=== PATIENT | female | born 1960 | race Caucasian/White ===

== ENCOUNTER → 2023-06-07 | Emergency (ER) | payer BC, MEDICARE ==
[~2023-06-07] VITALS: Ht 157.5 cm; Wt 45.0 kg
[2023-06-07 06:02] VITALS: TEMP 97.9
[2023-06-07 06:51] VITALS: BP 139/79; PULSE 84; O2SAT 98
[2023-06-07 07:00] VITALS: RESP 20
[2023-06-07] MEDS: thiamine 100mg tablet PO SCH (07:30)
[2023-06-07] MEDS: normal saline 1000ML IV soln IVB ONE (07:31)
[2023-06-07] MEDS: magnesium 2GM in 50ml NS 50 ML IV ONE (07:31)
[2023-06-07] MEDS: multivitamins, therapeutics tablet PO SCH (07:31)
== END | disposition left against medical advice (07) ==
LOC: ER 05:59
DX: F10.929 Alcohol use, unspecified with intoxication, unspecified (principal); I10 Essential (primary) hypertension; E03.9 Hypothyroidism, unspecified; Z88.2 Allergy status to sulfonamides; Y90.9 Presence of alcohol in blood, level not specified
CPT/HCPCS: 99284; J7030; J3475

== ENCOUNTER 2025-01-05 11:04 | Inpatient (IN) | payer OTHER, MEDICARE, BC ==
[~2025-01-05] VITALS: Ht 154.9 cm; Wt 49.9 kg
--- NOTE | 2025-01-05 11:10 | ELECTROCARDIOGRAPH REPORT ---
[facility] Test Date: 2025-01-05 Test Time: 11:07:09 Pat Name: MURALI HILARIO Department: EMERGENCY ROOM Room: Gender: F Histology Tech: WON : 1960 Requested By: ARLEEN ESPINOZA Order Number: [id number] Reading MD: Measurements Intervals [place] Rate: 73 P: 55 AK: 123 QRS: 70 QRSD: 84 T: 69 QT: 404 QTc: 446 Interpretive Statements Sinus rhythm Consider left ventricular hypertrophy Baseline wander in lead(s) V2 Please click the below link to view image of tracing.
--- NOTE | 2025-01-05 11:18 | Physician Documentation ---
History of Present Illness General Chief Complaint: Chest Pain Stated Complaint: CHEST PAIN Time Seen by MD: 11:17 Primary Medical Doctor: MALATHI Mccormack History of Present Illness Initial Comments The patient is a 64-year-old female with a history of alcoholism in the past and a GI bleed in the past who presents with intermittent chest pain. She states she has had chest pain over the last several weeks. The patient has seen her general counselor and they were planning to do an outpatient stress test. The patient has no history of coronary artery disease. Patient states that her pain has been worse yesterday morning and then this morning when she woke up it was proximally four to 5/10 in his increased to 6/10 she states it is epigastric and substernal sharp and she has slight shortness of breath. The patient was given a nitroglycerin prior to my examination and she had no significant relief. Patient denies any nausea or vomiting she does complain of some slight shortness of breath. Her symptoms are mild to moderate and persistent. Cardiologists is Dr. Quezada states the pain does radiate to her back Medication Reconciliation Allergies: Coded Allergies: Sulfa (Sulfonamide Antibiotics) (Verified Allergy, Mild, RASH, 01/05/25) Scheduled Atorvastatin Calcium (Atorvastatin Calcium), 1 TAB PO DAILY Bupropion Hcl SR* (Wellbutrin SR*), 1 TAB PO DAILY, (Reported) Cholecalciferol (Vitamin D3) (Vitamin D3), 1 CAP PO DAILY, (Reported) Estradiol (Linda), 0.05 MG TOP TF, (Reported) Furosemide (Lasix), 20 MG PO DAILY Gabapentin (Gabapentin), 3 CAP PO HS, (Reported) Levothyroxine Sodium (Synthroid), 1 TAB PO DAILY, (Reported) Liothyronine Sodium (Liothyronine Sodium), 1 TAB PO DAILY, (Reported) Losartan* (Cozaar*), 0.5 TAB PO DAILY, (Reported) Nebivolol Hcl (Bystolic tablet), 1 TAB PO HS, (Reported) Pantoprazole Sodium (Pantoprazole Sodium), 40 MG PO DAILY Trazodone HCl (Trazodone HCl), 1 TAB PO HS, (Reported) Scheduled PRN Tramadol HCl (Tramadol HCl), 1 TAB PO Q6H PRN PRN for pain Past Medical History Past Medical History: Hypertension, Peptic Ulcer Disease, Anemia, Hypothyroidism Alcohol Use: Alcoholic Drug Use: none Lives with: Spouse Lives In: Home Physical Exam Physical Exam Vital Signs: Temperature: 97.3, Source: Temporal, Heart Rate: 67, Respiratory Rate: 16, BP: 194/96, Pulse Oximetry: 97, Weight: 49.900 Oxygen Flow Rate: 0 Progress Results/Orders Results/Orders Orders - OHARLEEN MICHELLE MD Chest,Single View (01/05/25 11:06) Monitor (01/05/25 11:06) Saline Lock (01/05/25 11:06) Oxygen (01/05/25 11:06) Page Hospitalist (01/05/25 13:45) Fill Out Med Reconciliation (01/05/25 13:45) Completed Orders - ARLEEN BUCK MD Chest,Single View (01/05/25 11:06) Cbc/Diff (01/05/25 11:06) BMP (01/05/25 11:06) PBNP (01/05/25 11:06) Electrocardiogram (01/05/25 11:06) Hs Troponin I W Calculations (01/05/25 11:06) Hs Troponin I W Calculations (01/05/25 13:06) Hs Troponin I W Calculations (01/05/25 14:06) Nitroglycerin Sublingual Tab (Nitrostat (01/05/25 12:20) Lidocaine 2% Viscous (Xylocaine 2% Visco (01/05/25 12:55) Mag & Alum Hydrox/Simeth Susp (Maalox Or (01/05/25 12:55) D-Dimer (01/05/25 12:58) Morphine 4mg/Ml Inj. (Morphine Inj.) (01/05/25 13:35) Ondansetron Inj. (Zofran 4mg/2ml Vial) (01/05/25 13:35) C-Reactive Protein (01/05/25 11:27) Hgb A1c (01/05/25 11:27) Lipase (01/05/25 11:27) Lipid Panel (01/05/25 11:27) Liver Panel (01/05/25 11:27) MG (01/05/25 11:27) PHOS (01/05/25 11:27) Vital Signs 01/05/25 01/05/25 01/05/25 01/05/25 11:08 12:02 12:07 12:07 Temp 97.3 Pulse 67 71 Resp 16 12 15 B/P (MAP) 194/96 184/79 (114) Pulse Ox 97 98 98 O2 Delivery Room Air* O2 Flow Rate 0 0 FiO2 N/A 01/05/25 01/05/25 01/05/25 12:33 13:14 13:44 Pulse 76 71 Resp 12 12 14 B/P (MAP) 171/86 (114) 180/81 (114) Pulse Ox 97 98 Laboratory Tests Test 01/05/25 11:27 01/05/25 13:13 White Blood Count 4.2 L Red Blood Count 4.32 Hemoglobin 13.2 Hematocrit 39.0 Mean Corpuscular Volume 90.2 Mean Corpuscular Hemoglobin 30.5 Mean Corpuscular Hemoglobin Concent 33.9 Red Cell Distribution Width 14.9 H Platelet Count 163 Mean Platelet Volume 7.7 Neutrophils (%) (Auto) 59.8 Lymphocytes (%) (Auto) 27.6 Monocytes (%) (Auto) 7.6 Eosinophils (%) (Auto) 4.4 Basophils (%) (Auto) 0.6 Neutrophils # (Auto) 2.5 Lymphocytes # (Auto) 1.2 Monocytes # (Auto) 0.3 Eosinophils # (Auto) 0.2 Basophils # (Auto) 0.0 CBC Comment D-Dimer 0.69 H D-Dimer Comment Sodium Level 138 Potassium Level 4.0 Chloride Level 104 Carbon Dioxide Level 26.7 Anion Gap 7 L Blood Urea Nitrogen 6 L Creatinine 0.80 Estimated GFR/1.73 m2 72 BUN/Creatinine Ratio 7.5 L Glucose Level 96 Hemoglobin A1c 4.9 Lactic Acid Level 0.6 Calcium Level 9.3 Phosphorus Level 3.7 Magnesium Level 1.5 Total Bilirubin 1.0 Direct Bilirubin 0.3 Aspartate Amino Transf (AST/SGOT) 17 Alanine Aminotransferase (ALT/SGPT) 23 Alkaline Phosphatase 97 Troponin I High Sensitivity 9 10 C-Reactive Protein 0.05 Pro-B-Type Natriuretic Peptide 923 H Total Protein 6.6 Albumin 3.8 Globulin 2.8 Albumin/Globulin Ratio 1.4 Triglycerides Level 38 Cholesterol Level 221 H LDL Cholesterol 49 L HDL Cholesterol 152 H Cholesterol/HDL Ratio Lipase 41 Procalcitonin < 0.05 Chemistry Comments Troponin I High Sens Percent Delta 11 Troponin I Hi Sens Absolute Change 1 Medical Decision Making Findings The patient is a 66-year-old female who presents to the emergency department with a complaint of epigastric pain as well as chest pain patient has a benign abdominal exam the patient's cardiac workup demonstrated a nonischemic appearing EKG I have reviewed the EKG as well as I have reviewed the chest x-ray. The patient's campus monitor was interpreted as a sinus rhythm the patient's cardiac markers were unremarkable the patient will be admitted for further evaluation of her chest pain the case has been discussed with the hospitalist. The patient will be admitted to the hospitalist the patient's pulse oximetry was interpreted as adequate normal Departure Impression: Primary Impression: Chest pain Qualified Codes: R07.9 - Chest pain, unspecified Referrals: NO PRIMARY CARE PROVIDER (PCP) Prescriptions Tramadol HCl (Tramadol HCl) 50 Mg Tablet 1 TAB PO Q6H PRN PRN for pain for 7 Days, #28 TAB Prov: RICARDO HASSAN MD 01/07/25 Furosemide (LASIX) 20 Mg Tablet 20 MG PO DAILY for 30 Days, #30 TAB Prov: YOSEF DUMONT RES 01/07/25 Atorvastatin Calcium (Atorvastatin Calcium) 40 Mg Tablet 1 TAB PO DAILY for 30 Days, #30 TAB 0 Refills Prov: YOSEF DUMONT RES 01/07/25 Pantoprazole Sodium (Pantoprazole Sodium) 40 Mg Tablet.dr 40 MG PO DAILY for 10 Days, #10 TAB.SR Prov: YOSEF DUMONT RES 01/07/25 Signature Scribe Signature: no scribe Attestation: The note accurately reflects work and decisions made by me.Arleen Buck MD 12:04 ARLEEN BUCK MD Jan 05, 2025 11:18
[2025-01-05 11:34] LABS: MEAN PLATELET VOLUME 7.7 FL (7.4-10.4); RED CELL DISTRIBUTION WIDTH 14.9 % (11.5-14.5)
--- NOTE | 2025-01-05 11:52 | RADIOLOGY REPORT ---
DI CHEST,SINGLE VIEW, HISTORY: CP COMPARISON: None None TECHNICAL DATA: 1 view of the chest was obtained. FINDINGS: Lines and tubes: None Cardiomediastinal silhouette: normal Pulmonary vasculature: normal Lung expansion: normal Lung airspace: normal Lung interstitium: normal Pleura: normal Pneumothorax: no Bones: Unremarkable Other: no IMPRESSION: No acute intrathoracic abnormality.
[2025-01-05 11:55] LABS: CREATININE 0.80 MG/DL (0.40-0.90); PRO BRAIN NATRIURETIC PEPTIDE 923 PG/ML (0-125); TOTAL CARBON DIOXIDE 26.7 MMOL/L (24-32); eCRCL 52 ML/MIN; eGFR 72 ML/MIN
[2025-01-05] MEDS: LIDOcaine 2% Viscous 15ml cup MM ONE (13:06)
[2025-01-05] MEDS: mag hydrox/Alum hydrox/simeth 30ml oral suspension PO ONE (13:06)
[2025-01-05] MEDS: ondansetron/PF 4mg/2ml inj IV ONE (13:44)
[2025-01-05] MEDS: morphine 4 MG/ML inj SYRINge IV ONE (13:44)
[2025-01-05] MEDS ORDERED: NEBI5TAB9 PO (13:57)
[2025-01-05] MEDS ORDERED: GABA-530 PO (13:57)
[2025-01-05] MEDS ORDERED: CHOL25CA2 PO (13:57)
[2025-01-05] MEDS ORDERED: LIOT5TAB10 PO (13:57)
[2025-01-05] MEDS ORDERED: [UNRECOGNIZED DRUG - CODE] TOP (13:57)
[2025-01-05] MEDS ORDERED: LEVO125T PO (13:57)
[2025-01-05] MEDS ORDERED: BUPR150T8 PO (13:57)
[2025-01-05] MEDS ORDERED: TRAZ300T2 PO (13:57)
[2025-01-05] MEDS ORDERED: LOSA-416 PO (13:57)
[2025-01-05] MEDS ORDERED: magnesium sulf-water 4G/100mL 100 ML IV PRN (16:10)
[2025-01-05] MEDS ORDERED: magnesium hydroxide 30ml (MOM) UD suspension PO PRN (16:10)
[2025-01-05] MEDS ORDERED: magnesium sulf-water 2g/50mL 50 ML IV PRN (16:10)
[2025-01-05] MEDS ORDERED: mag hydrox/Alum hydrox/simeth 30ml oral suspension PO PRN (16:10)
[2025-01-05] MEDS ORDERED: potassium Cl 40MEQ/1/2NS 520ml 520 ML IV PRN (16:10)
[2025-01-05] MEDS ORDERED: potassium Cl 20 mEq SR tablet PO PRN (16:10)
[2025-01-05] MEDS ORDERED: magnesium Cl slow-release 64mg tablet PO PRN (16:10)
[2025-01-05] MEDS ORDERED: ondansetron/PF 4mg/2ml inj IV PRN (16:10)
[2025-01-05 17:00] LABS: LDL CHOLESTEROL 49 MG/DL (50-100); PHOSPHORUS 3.7 MG/DL (2.3-4.5)
--- NOTE | 2025-01-05 17:04 | HISTORY AND PHYSICAL-Residence ---
History & Physical Providers to CC Resident Creating Document: BAN MENDEZ, RES ~ History of Present Illness Primary Medical Doctor: MALATHI Mccormack Reason for Admit\Complaint: Chest pain History of Present Illness 64-year-old female came to the ED with chief complaints of chest pain. She reports that she has on and off chest pain since past 6 weeks and that there are no triggers. She gets the chest pain even at rest and it subsides in a few minutes. The last 2 mornings, the chest pain was intense that she woke up from sleep, but it subsided. Today morning the chest pain did not subside which made her come to the ER. She describes aching chest pain radiating to the back, severity of fluctuation between 4/10 and 8/10 in the morning, and a severity of 4/10 now. She states that the pain relieves mildly when she leans forward but was not radiated to the back. She denies shortness of breath, palpitations. She was given nitroglycerin in the ER and states that her chest pain is not relieved. 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 Quezada and in her last visit in November, she was told to get a stress test if the chest pain continues. She has asthma since 10 years and uses inhalers. She states that she feels slightly nauseous and has a headache since 3 hours. She denies hemoptysis, nausea and vomiting, acid reflux, constipation, diarrhea, abdominal pain, changes in appetite or weight, blurring of vision, dizziness, swelling of legs, sleep apnea. She denies recent viral infections and recent travel. Allergies: Coded Allergies: Sulfa (Sulfonamide Antibiotics) (Verified Allergy, Mild, RASH, 01/05/25) Home Medications Home Medications Active Reported Linda (Estradiol) 0.05 Mg/24 Hour Patch.tdsw 0.05 Mg TOP TF Wellbutrin SR* (Bupropion HCl) 150 Mg Tablet.sa 1 Tab PO DAILY LOOK-ALIKE SOUND-ALIKE DRUG buSPIRone & buPROPion Trazodone HCl 300 Mg Tablet 1 Tab PO HS Gabapentin 100 Mg Capsule 3 Cap PO HS Bystolic tablet (Nebivolol Hcl) 5 Mg Tablet 1 Tab PO HS Cozaar* (Losartan Potassium) 50 Mg Tablet 0.5 Tab PO DAILY Vitamin D3 (Cholecalciferol (Vitamin D3)) 25 Mcg (1000 Unit) Capsule 1 Cap PO DAILY Liothyronine Sodium 5 Mcg Tablet 1 Tab PO DAILY Synthroid (Levothyroxine Sodium) 125 Mcg Tablet 1 Tab PO DAILY Past Medical History Past Medical History Hypertension Pulmonary arterial hypertension 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 Asthma Ovarian cyst Peptic ulcer disease Past Surgical History Surgical History Comment Spinal fusion surgery Hysterectomy Cataract surgery Right knee partial replacement ACL reconstruction Family history Mother-stroke Past Social History Social History Comment She quit smoking in 1990, she used to smoke 1 pack per day 15 years She quit drinking alcohol last year September, she used to drink 1/5 of vodka every other day for 8 years She denies recreational drug use Personal history 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 Gastrointestinal: Mild nausea, No Abdominal pain, vomiting, constipation,diarrhea. Normal appetite. No hematemesis or melena. Musculoskeletal: No Swelling, pain Integumentary: No change in skin, hair, nails. No swelling, bruising, abrasions Neurologic: No weakness,No headache, neck pain, numbness or tingling of the extremities, Psychiatric: No delusions, depression, loss of interest in normal activity or change in sleep pattern, hallucinations, suicidal ideations Endocrine: No fatigue, no weakness. polydipsia, polyuria, change in appetite, heat or cold intolerance, sweating, dry skin Hematological: No bleeding, petechiae, bruising Exam Vitals: Vital Signs Date Time Temp Pulse Resp B/P (MAP) Pulse Ox O2 Delivery O2 Flow Rate FiO2 01/05/25 14:55 73 16 170/89 (116) 97 01/05/25 12:07 Room Air* 0 N/A 01/05/25 11:08 97.3 General: Awake , alert, and oriented x4, resting comfortably in the bed, in no acute distress HEENT: Atraumatic, normocephalic, EOMI, anicteric sclera ; pink conjunctiva Neck: Trachea midline. Supple, full range of motion, no JVD Cardiac: No Chest wall tenderness, Regular rhythm, regular rate with no murmurs all over the precordium. Respiratory: Equal breath sounds bilaterally, no tachypnea, no wheezing ,rub or rales, Chest wall is symmetric and without deformity. Gastrointestinal: Abdomen symmetric, non-distended, soft, non-tender, normal bowel sounds x4 quadrant, normoactive, no hepatosplenomegaly, no epi gastric tenderness Musculoskeletal: No pedal edema, no cyanosis Neurological: Speech is clear, alert, and oriented x 4. No motor or sensory deficit, deep tendon reflexes normal, cerebellar intact. Cranial nerves II-XII intact. Skin: Warm and dry Diagnostic Data Last Recorded Lab Results: 01/05/25 1127 01/05/25 1127 Diagnostic Data: Laboratory Tests Test 01/05/25 11:27 D-Dimer 0.69 MG/L FEU (0-0.50) H D-Dimer Comment Advance Care Planning Advanced Care plannin - 30 Minutes Additional Plan Chest pain, probably 2/2 Unstable angina Vs Non-cardiogenic ACS to be excluded out ASCVD score- 4.5% Heart score- 4 Serial troponins are normal EKG is normal without any ST elevations or T inversions She does not have chest tenderness, musculoskeletal chest pain is less likely She uses estradiol patch, d-dimer slightly elevated-0.69, She has no signs of DVT, Well's score is 0, pulmonary embolism is less likely She does not complain of acid reflux, plan to start pantoprazole if other etiologies of chest pain are ruled out Past medical history of pulmonary artery hypertension, not on any medication BNP is elevated-923, follow up on echo. Patient's chest pain mildly relieves on leaning forward, no recent viral infections, no ST elevation on EKG, pericarditis less likely Lipase is normal-41 BNP elevated-923, pending echo Severe hypertension- systolic pressure in the 180's, which could be the cause of chest pain and elevated BNP She is not an active smoker Plan: Started Lasix 20 mg IV and nitroglycerin patch 0.4 mg/hour Q 24 H Monitor I's and O's Monitor vitals Initiate telemetry monitoring Follow up TSH, D Dimer Follow up echo, we will plan consultation with Dr. Quezada and discuss Lexiscan and further management Hypertensive urgency Blood pressure was 194/96 POA It is trending down, 170/89 at the moment Kidney function tests are normal BNP is elevated 923 She was given nitroglycerin in the ER Continued home medication losartan 25 mg p.o. and nebivolol 5 mg p.o. h.s. Started Lasix 20 mg IV Q24.h and nitroglycerin patch 0.4 mg/hr Q24h Hyperlipidemia Lipid panel shows elevated HDL cholesterol of 152, Elevated total cholesterol of 221 normal LDL <50, and triglycerides 10 year cardiovascular risk < 7.5% Will consider atorvastatin 40 mg p.o. daily if LDL >50 for ACS prevention later Hypothyroidism Follow up TSH History of Gordo's thyroiditis Continue home medication levothyroxine 125 mcg and liothyronine 5 mcg Monitor vitals Code status: Full code DVT prophylaxis: Lovenox Pain management: Nitroglycerin patch Diet/nutrition: Heart healthy diet Prognosis: Guarded Disposition: Continue medical management and telemetry monitoring, Cardiology consultation on Tuesday, PT eval and DC plan Resident attestation: The patient note has been reviewed and supervised by senior residents PGY-3 Dr Lara Patient was seen, examined and discussed with attending physicia DR Laura Mendez MD Internal Medicine resident, PGY-1 Date of Service: Jan 05, 2025 Billing Provider: RICARDO HASSAN MD Common Visit Codes: [id number] INP/OBS CARE (HIGH) Secondary Visit Codes: [id number] CARE PLAN 30 MINUTES BAN MENDEZ, BHAKTI Jan 05, 2025 17:04 SONIDO LARA, RES Jan 05, 2025 20:00 RICARDO HASSAN MD Jan 07, 2025 06:04
[2025-01-05 18:00] VITALS: BP 135/70; PULSE 75; RESP 18; TEMP 97.9; O2SAT 99
[2025-01-05] MEDS: furosemide 10 MG/1 ML 10ml inj IV SCH (19:06)
[2025-01-05 19:50] LABS: APTT 26 SECONDS (22-32); INR 1.1 INR
[2025-01-05 20:00] VITALS: RESP 19; O2SAT 97
[2025-01-05] MEDS: docusate sod 100mg capsule PO SCH (20:00)
[2025-01-05] MEDS: K and/or MAG REPLACEMENT MC SCH (20:00)
[2025-01-05] MEDS: enoxaparin 40mg/0.4ml syringe SQ SCH (21:43)
[2025-01-05] MEDS: metoprolol tartrate 12.5mg (1/2 tablet) PO SCH (21:50)
[2025-01-05 22:00] VITALS: BP 139/59; PULSE 73; RESP 14; TEMP 97.6; O2SAT 96
[2025-01-06] VITALS (9 sets, daily range): BP systolic 113–139; BP diastolic 65–79; PULSE 61–85; RESP 12–19; TEMP 97.3–98; O2SAT 95–98
[2025-01-06 07:18] LABS: MEAN PLATELET VOLUME 8.1 FL (7.4-10.4); RED CELL DISTRIBUTION WIDTH 14.6 % (11.5-14.5)
[2025-01-06 07:35] LABS: CREATININE 0.70 MG/DL (0.40-0.90); TOTAL CARBON DIOXIDE 30.6 MMOL/L (24-32); eCRCL 60 ML/MIN; eGFR 84 ML/MIN
[2025-01-06] MEDS: liothyronine sod 5mcg tablet PO SCH (08:25)
[2025-01-06] MEDS: buPROPion SR 150mg tablet PO SCH (08:27)
[2025-01-06] MEDS: potassium Cl 20 mEq SR tablet PO PRN (08:31)
[2025-01-06] MEDS ORDERED: aminophylline 250mg/10ml inj. IV PRN (09:20)
[2025-01-06] MEDS ORDERED: regadenoson 0.4mg/5ml syringe IV PRN (09:20)
[2025-01-06] MEDS ORDERED: metoprolol tartrate 1mg/ml inj IV PRN (09:20)
--- NOTE | 2025-01-06 12:34 | ELECTROCARDIOGRAPH REPORT ---
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 RUBY Villanueva Measurements Intervals [place] Rate: 68 P: 87 OH: 136 QRS: 73 QRSD: 92 T: 69 QT: 410 QTc: 437 Interpretive Statements Sinus rhythm Consider left atrial enlargement Probable left ventricular hypertrophy Electronically Signed On 01-06-2025 17:18:[address] RUBY Villanueva Please click the below link to view image of tracing.
--- NOTE | 2025-01-06 15:48 | PROGRESS NOTE- Residence ---
Progress Note - Resident Providers to CC Resident Creating Document: DERICK RENTERIA RES ~ Antibiotic Timeout Antibiotic Ordered?: No Subjective Patient was seen and examined at bedside. She still complains of chest pain that did not resolve with nitroglycerin. No shortness breath, cough, palpitation or any other respiratory/cardiac symptoms reported. Objective Vital Signs Date Time Temp Pulse Resp B/P (MAP) Pulse Ox O2 Delivery O2 Flow Rate FiO2 01/06/25 12:12 16 01/06/25 10:00 97.7 71 125/68 (87) 95 Room Air 01/06/25 06:07 0 21 Result Diagram: 01/06/25 0638 01/06/25 0638 General: Awake and Alert, no acute distress. HEENT: Conjunctiva pink, Sclera clear, Mucus Membranes moist. Neck: Supple without masses and tenderness. Resp: Unlabored. Lungs clear to auscultation bilaterally. Heart: Regular Rate and rhythm, normal S1 and S2 without murmur, rub or gallop. Abdomen: Soft and non tender no organomegaly Extremities: No cyanosis,clubbing or edema. Skin: Warm and Dry. Coagulation Studies Laboratory Tests Test 01/05/25 11:27 01/05/25 19:02 D-Dimer 0.69 MG/L FEU (0-0.50) H D-Dimer Comment Prothrombin Time 10.9 SECONDS (9.0-12.0) INR International Normalized Ratio 1.1 INR Activated Partial Thromboplast Time 26 SECONDS (22-32) Coagulation Comments Plan Plan Assessment and plan 1. Persistent chest pain, Unstable angina Vs Non-cardiogenic ACS to be excluded out ASCVD score- 4.5% Heart score- 4 Serial troponins are normal EKG is normal without any ST elevations or T inversions She does not have chest tenderness, musculoskeletal chest pain is less likely She uses estradiol patch, d-dimer slightly elevated-0.69, She has no signs of DVT, Well's score is 0, pulmonary embolism is less likely She does not complain of acid reflux, but has a history of gastric ulcer Past medical history of pulmonary artery hypertension, not on any medication BNP is elevated-923, follow up on echo. Patient's chest pain mildly relieves on leaning forward, no recent viral infections, no ST elevation on EKG, pericarditis less likely Lipase is normal-41 Severe hypertension POA - systolic pressure in the 180's, which could be the cause of chest pain and elevated BNP She is not an active smoker Plan: Started Lasix 20 mg IV and nitroglycerin patch 0.4 mg/hour Q 24 H Monitor I's and O's Monitor vitals Initiate telemetry monitoring Follow up TSH, D Dimer Follow up echo, we will plan consultation with Dr. Quezada and discuss Lexiscan and further management 01/06/25 D/c nitroglycerin patch since no improvement seen Controlled BP today Ordered Lexiscan - not done today because for lack of medication Started on Pantoprazole 40mg daily D-dimer mildly elevated 0.69, ordered lower extremity vascular US Prelim Echo report: Overall systolic function is normal. LVEF is 65-70%. RVSP 37 mmHg 2. Hypertensive urgency - resolved Blood pressure was 194/96 POA It is trending down, 170/89 at the moment Kidney function tests are normal BNP is elevated 923 She was given nitroglycerin in the ER Continued home medication losartan 25 mg p.o. and nebivolol 5 mg p.o. h.s. Started Lasix 20 mg IV Q24.h and nitroglycerin patch 0.4 mg/hr Q24h 01/06/2025 Controlled BP - 125/68mmHg Continue home medication and Lasix 20mg IV 3. Hyperlipidemia Lipid panel shows elevated HDL cholesterol of 152, Elevated total cholesterol of 221 normal LDL <50, and triglycerides 10 year cardiovascular risk < 7.5% Will consider atorvastatin 40 mg p.o. daily if LDL >50 for ACS prevention later 4. Hypothyroidism TSH 0.64 History of Gordo's thyroiditis Continue home medication levothyroxine 125 mcg and liothyronine 5 mcg Code status: Full code DVT prophylaxis: Lovenox Pain management: Morphine Diet/nutrition: Heart healthy diet Prognosis: Guarded Disposition: Continue medical management and telemetry monitoring. Pending Lexiscan and PT eval. Resident attestation The above note has been reviewed and supervised by a senior resident PGY2/PGY3 Patient was seen, examined and discussed with the attending physician Date of Service: Jan 06, 2025 Billing Provider: RICARDO HASSAN MD Common Visit Codes: [id number] INP/OBS CARE(HIGH) DERICK RENTERIA RES Jan 06, 2025 15:48 RICARDO HASSAN MD Jan 07, 2025 06:05
--- NOTE | 2025-01-06 16:47 | VASCULAR REPORT ---
Bilateral lower extremity venous duplex Clinical History: Pain, swelling Comparison: None Technique: Duplex Doppler evaluation of the deep venous systems of both lower extremities from the common femora l veins to the popliteal veins including color Doppler and spectral/pulsed waveform analysis was perf ormed. Findings: RIGHT SIDE: The common femoral vein demonstrates appropriate compressibility and waveform variability. There is compressibility/patency of the great saphenous vein at the proximal thigh. The femoral vein demonstrates appropriate compressibility and waveform variability. The deep femoral vein demonstrates appropriate compressibility and waveform variability. The popliteal vein demonstrates appropriate compressibility and waveform variability. There is normal compressibility at the tibioperoneal trunk. LEFT SIDE: The common femoral vein demonstrates appropriate compressibility and waveform variability. Left greater saphenous vein has been previously surgically treated. The femoral vein demonstrates appropriate compressibility and waveform variability. The deep femoral vein demonstrates appropriate compressibility and waveform variability. The popliteal vein demonstrates appropriate compressibility and waveform variability. There is normal compressibility at the tibioperoneal trunk. Impression: No right or left femoropopliteal venous thrombosis. Incidental note of superficial venous reflux in the right greater saphenous vein in the thigh.
--- NOTE | 2025-01-06 18:57 | CARDIOLOGY REPORT ---
APPROVED REPORT EXAM: Comprehensive 2D, Doppler, and color-flow Echocardiogram. Patient Location: 3[address] Heart Rate: 60's bpm Rhythm: SINUS Indications PULMONARY HYPERTENSION CHEST PAIN [place] Actor: Miryam Quezada MD Previous echo: NONE AVAILABLE (AFTER HOURS) 2D Dimensions RVDd 2.8 cm LA Diam2.5 cm IVSd 1.1 (0.7-1.1cm) LVDd 3.7 cm PWd 0.9 (0.7-1.1cm) IVSs 1.4 (0.8-1.2cm) LVDs 2.4 (2.5-4.0cm) PWs 1.4 (0.8-1.2cm) LVOT Diameter 1.91 (1.8-2.4cm) LVEF(%) 65.4 (>50%) FS (%) 35.2 % SV 39.2 ml CO 2.6 L/min M-Mode Dimensions Aortic Root 2.92 (2.2-3.7cm) Aortic Cusp Exc 1.78 (1.5-2.0cm) Aortic Valve AoV Peak Hernando. 104.0 cm/s AoV VTI 19.4 cm AO Peak GR. 4.3 mmHg AO Mean GR. 3 mmHg LVOT VTI 17.05 cm LVOT Peak Hernando. 92.6 cm/s CHRISTIANE(VTI)/BSA 2.52 cm2/m2 CHRISTIANE (VTI) 2.52 cm2 Mitral Valve MV E Velocity 49.0 cm/s MV Peak Gr. 1 mmHg MV DECEL TIME 204 ms MV A Velocity 57.5 cm/s MV PHT 72 ms E/A Ratio 0.9 MVA (PHT) 3.06 cm2 MV VMax58.6 cm/s TDI Lateral E' P. V5.42 cm/s E/Lateral E' 9.0 Tricuspid Valve TR P. Velocity 262 cm/s RAP ESTIMATE 10 mmHg TR Peak Gr. 27 mmHg RVSP 37 mmHg Pulmonary Vein S1 Velocity 57.7 cm/s D2 Velocity 58.4 cm/s PVa Ebyhfobm27.1 cm/s PVa [id number] msec LEFT VENTRICLE Normal LV size and wall thickness. Overall systolic function is normal. LVEF is 65-70%. RIGHT VENTRICLE RV is normal size and function. Elevated right heart pressures with an RVSP of 39 mmHg. ATRIA The left atrium size is normal. AORTIC VALVE Trileaflet AV appears normal without stenosis. No insufficiency. MITRAL VALVE Mild MV annular calcification without stenosis. Trace regurgitation. TRICUSPID VALVE TV appears structurally normal with trace regurgitation. PULMONIC VALVE Normal PV without stenosis, physiologic insufficiency. GREAT VESSELS The aortic root is normal in size. PERICARDIUM Normal pericardium. No effusion. Other Information Study Quality: Adequate Conclusion Normal LV size and wall thickness. Overall systolic function is normal. LVEF is 65-70%. RV is normal size and function. Elevated right heart pressures with an RVSP of 39 mmHg. The left atrium size is normal. Trileaflet AV appears normal without stenosis. No insufficiency. Mild MV annular calcification without stenosis. Trace regurgitation. TV appears structurally normal with trace regurgitation. Normal pericardium. No effusion.
[2025-01-07] VITALS (13 sets, daily range): BP systolic 116–168; BP diastolic 59–83; PULSE 68–99; RESP 12–20; TEMP 97.4–98.9; O2SAT 97–100
[2025-01-07 06:53] LABS: MEAN PLATELET VOLUME 8.8 FL (7.4-10.4); RED CELL DISTRIBUTION WIDTH 14.9 % (11.5-14.5)
[2025-01-07 07:09] LABS: CREATININE 0.90 MG/DL (0.40-0.90); TOTAL CARBON DIOXIDE 26.3 MMOL/L (24-32); eCRCL 46 ML/MIN; eGFR 63 ML/MIN
[2025-01-07] MEDS: regadenoson 0.4mg/5ml syringe IV ONE (09:48)
--- NOTE | 2025-01-07 11:00 | RADIOLOGY REPORT ---
Reason for study/Clinical History: Pain Comparison Study: None Myocardial Perfusion Study with SPECT Technique: The patient received an intravenous injection of 8.3 mCi of technetium-99m Sestamibi whi joaquim at rest. After a short delay, SPECT tomographic images of the heart were obtained. The patient melinda elkins went to the stress lab where they received an intravenous Lexiscan utilizing standard protocol. 35.2 mCi of technetium-99m Sestamibi was injected intravenously immediately after the start of the infusion. Gated SPECT tomographic images of the heart were acquired and processed. Findings: Rotating planar images show no significant attenuation artifact. The left ventricular size is within normal limits. Stress tomographic images demonstrate normal perfusion. Resting tomographic images demonstrate a similar pattern. Gated portion of the study shows normal wall motion and myocardial thickening. The left ventricular ejection fraction is 41 %. (normal greater than 50%) Impression: Normal left ventricular size, wall motion, and function, without evidence of infarction or of myocard ium at ischemic risk. The left ventricular ejection fraction is 41 %.
--- NOTE | 2025-01-07 15:39 | RADIOLOGY REPORT ---
EXAM: CT CTA AORTA DISECTION W/ IV CONTRAST HISTORY: Constant chest pain and to rule out dissection COMPARISON: None TECHNIQUE: CT angiogram of the chest, abdomen and pelvis. CT scans at this facility use dose modulati on, iterative reconstruction, and/or weight based dosing when appropriate to reduce radiation dose to as low as reasonably achievable. 100 mL of low osmolar contrast was administered without adverse eff ect. 3-D postprocessing was performed on a separate workstation under radiologist supervision. MIPs w ere created. VASCULAR FINDINGS: Normal caliber of abdominal aorta without evidence of aortic dissection or aneurysm. The mesenteric, and bilateral renal, iliac and femoral arteries are widely patent without any focal stenosis or aneur ysm NON-VASCULAR FINDINGS: [CHEST]: Normal cardiac size. No pericardial effusion no mass or consolidation within the lungs. No pleural effusion or pneumothorax. Bilateral breast tissue is symmetric [LIVER]: Normal hepatic size without suspicious focal lesion. [GALLBLADDER AND BILIARY TREE]: No cholelithiasis. No biliary dilatation. [SPLEEN]: Unremarkable. [PANCREAS]: Unremarkable. [ADRENAL GLANDS]: Unremarkable [KIDNEYS]: No hydronephrosis. No nephroureterolithiasis. [BLADDER]: Unremarkable for the degree distention. [PELVIC ORGANS]: Unremarkable. [BOWEL/MESENTERY]: Stomach is normal. No CT evidence of bowel obstruction. There is no free air. Mild -to-moderate stool burden. [ASCITES]: Absent [LYMPHADENOPATHY]: No pathologically enlarged lymph nodes by CT size criteria [ABDOMINAL WALL]: Unremarkable. [MUSCULOSKELETAL]: No acute fracture or aggressive focal osseous lesion. Multifocal degenerative balderrama ge of the visualized spine. Fusion hardware in the lumbar spine and right-sided iliac screw. IMPRESSION: 1. No evidence of acute aneurysm, dissection, or intramural hematoma.
[2025-01-07] MEDS ORDERED: PANT40TA54 PO (16:07)
[2025-01-07] MEDS ORDERED: ATOR40TA71 PO (16:07)
[2025-01-07] MEDS ORDERED: FURO-150 PO (16:07)
--- NOTE | 2025-01-07 20:26 | DISCHARGE SUMMARY-Residence ---
Discharge Summary Providers to Resident Creating Document: YOSEF DUMONT, RES ~ Discharge Summary Admission Diagnosis: CP to exclude out ACS Hospital Course DATE OF ADMISSION: 01/05/2025 DATE OF DISCHARGE: 01/07/2025 Discharge Diagnosis\Comment: 1. Persistent chest pain, Unstable angina Vs Non-cardiogenic 2. Hypertensive urgency - resolved 3. Hyperlipidemia 4. Hypothyroidism Operations\Procedures: None Consultants: Cardiology Complications: None Condition on DC: Stable New Medications: Atorvastatin Calcium (Atorvastatin Calcium) 40 Mg Tablet 1 TAB PO DAILY for 30 Days, #30 TAB 0 Refills Furosemide (Lasix) 20 Mg Tablet 20 MG PO DAILY for 30 Days, #30 TAB Pantoprazole Sodium (Pantoprazole Sodium) 40 Mg Tablet.dr 40 MG PO DAILY for 10 Days, #10 TAB.SR Continued Medications: Bupropion Hcl SR* (Wellbutrin SR*) 150 Mg Tablet.sa 1 TAB PO DAILY, TAB LOOK-ALIKE SOUND-ALIKE DRUG buSPIRone & buPROPion Cholecalciferol (Vitamin D3) (Vitamin D3) 25 Mcg (1000 Unit) Capsule 1 CAP PO DAILY, CAP 0 Refills Estradiol (Linda) 0.05 Mg/24 Hour Patch.tdsw 0.05 MG TOP TF Gabapentin (Gabapentin) 100 Mg Capsule 3 CAP PO HS, CAP 0 Refills Levothyroxine Sodium (Synthroid) 125 Mcg Tablet 1 TAB PO DAILY, TAB 0 Refills Liothyronine Sodium (Liothyronine Sodium) 5 Mcg Tablet 1 TAB PO DAILY, TAB 0 Refills Losartan* (Cozaar*) 50 Mg Tablet 0.5 TAB PO DAILY, TAB Nebivolol Hcl (Bystolic tablet) 5 Mg Tablet 1 TAB PO HS, TAB 0 Refills Trazodone HCl (Trazodone HCl) 300 Mg Tablet 1 TAB PO HS, TAB 0 Refills Discharge Summary: HPI as per admitting physician: 64-year-old female came to the ED with chief complaints of chest pain. She reports that she has on and off chest pain since past 6 weeks and that there are no triggers. She gets the chest pain even at rest and it subsides in a few minutes. The last 2 mornings, the chest pain was intense that she woke up from sleep, but it subsided. Today morning the chest pain did not subside which made her come to the ER. She describes aching chest pain radiating to the back, severity of fluctuation between 4/10 and 8/10 in the morning, and a severity of 4/10 now. She states that the pain relieves mildly when she leans forward but was not radiated to the back. She denies shortness of breath, palpitations. She was given nitroglycerin in the ER and states that her chest pain is not relieved. She reports having a medical history of pulmonary arterial hypertension since a year, her clinical psychology teacher is Dr. Quezada and in her last visit in November, she was told to get a stress test if the chest pain continues. She has asthma since 10 years and uses inhalers. She states that she feels slightly nauseous and has a headache since 3 hours. She denies hemoptysis, nausea and vomiting, acid reflux, constipation, diarrhea, abdominal pain, changes in appetite or weight, blurring of vision, dizziness, swelling of legs, sleep apnea. She denies recent viral infections and recent travel. Hospital course: The patient was admitted on 01/06/25 with complaints of persistent chest pain in the setting of severe hypertension and elevated BNP. Initial concern was for unstable angina versus non-cardiogenic acute coronary syndrome. EKGs showed no acute ischemic changes, and serial troponins remained negative. Chest pain was atypical, mildly improved with leaning forward, but without supportive EKG findings or recent viral history, making pericarditis less likely. D-dimer was mildly elevated at 0.69; however, Wells score was 0, and there were no signs of DVT. Pulmonary embolism was considered unlikely, though lower extremity Doppler ultrasound was ordered for completeness. CTA chest excluded aortic dissection. Echocardiogram revealed preserved left ventricular systolic function with an ejection fraction of 6570%, though BNP was elevated at 923, possibly reflecting underlying pulmonary hypertension or hypertensive urgency. The patient initially received IV Lasix and nitroglycerin for hypertensive urgency and chest discomfort. Her blood pressure improved from a peak of 194/96 mmHg to well-controlled values (125/68 mmHg). Given lack of chest pain relief, the nitroglycerin patch was discontinued, while IV diuretics and home antihypertensives (losartan, nebivolol) were continued. Additional workup included lipid panel showing elevated HDL and total cholesterol but LDL <50, and thyroid function testing in the context of known Hashimotos hypothyroidism. She was continued on home thyroid replacement therapy. Pain was managed with morphine as needed, and she was placed on telemetry and a heart-healthy diet. A Lexiscan nuclear stress test was completed and was negative for ischemia. CTA aorta was also negative for dissection. Given resolution of hypertensive urgency, improved chest discomfort, and reassuring cardiac testing, cardiology (Dr. Roge Quezada) was consulted and recommended discharge with continuation of home medications, outpatient follow-up, and risk factor modification. Imaging: Chest x-ray: No acute intrathoracic abnormality. Vascular ultrasound: No right or left femoropopliteal venous thrombosis. Incidental note of superficial venous reflux in the right greater saphenous vein in the thigh. Echocardiogram: Normal LV size and wall thickness. Overall systolic function is normal. LVEF is 65-70%. RV is normal size and function. Elevated right heart pressures with an RVSP of 39 mmHg. The left atrium size is normal. Trileaflet AV appears normal without stenosis. No insufficiency. Mild MV annular calcification without stenosis. Trace regurgitation. TV appears structurally normal with trace regurgitation. Normal pericardium. No effusion. Lexiscan: Normal left ventricular size, wall motion, and function, without evidence of infarction or of myocardium at ischemic risk. The left ventricular ejection fraction is 41 %. CTA-aortic dissection No evidence of acute aneurysm, dissection, or intramural hematoma. Physical examination today: Awake , alert, and oriented x4, resting comfortably in the bed, in no acute distress HEENT: Atraumatic, normocephalic, EOMI, anicteric sclera ; pink conjunctiva Neck: Trachea midline. Supple, full range of motion, no JVD Cardiac: No Chest wall tenderness, Regular rhythm, regular rate with no murmurs all over the precordium. Respiratory: Equal breath sounds bilaterally, no tachypnea, no wheezing ,rub or rales, Chest wall is symmetric and without deformity. Gastrointestinal: Abdomen symmetric, non-distended, soft, non-tender, normal bowel sounds x4 quadrant, normoactive, no hepatosplenomegaly, no epi gastric tenderness Musculoskeletal: No pedal edema, no cyanosis Neurological: Speech is clear, alert, and oriented x 4. No motor or sensory deficit, deep tendon reflexes normal, cerebellar intact. Cranial nerves II-XII intact. Skin: Warm and dry Laboratory Tests Test 01/05/25 21:16 01/06/25 06:38 01/07/25 06:11 Troponin I High Sensitivity 20 ng/L Troponin I High Sens Percent Delta 66 % Troponin I Hi Sens Absolute Change 8 ng/L White Blood Count 4.9 X10'3 5.0 X10'3 Red Blood Count 4.21 X10'6 4.79 X10'6 Hemoglobin 12.8 g/dl 14.7 g/dl Hematocrit 38.3 % 43.8 % Mean Corpuscular Volume 91.1 FL 91.3 FL Mean Corpuscular Hemoglobin 30.5 PG 30.7 PG Mean Corpuscular Hemoglobin Concent 33.5 g/dL 33.6 g/dL Red Cell Distribution Width 14.6 % 14.9 % Platelet Count 165 X10'3 117 X10'3 Mean Platelet Volume 8.1 FL 8.8 FL Neutrophils (%) (Auto) 60.6 % 58.8 % Lymphocytes (%) (Auto) 27.6 % 29.0 % Monocytes (%) (Auto) 7.2 % 7.9 % Eosinophils (%) (Auto) 4.1 % 3.6 % Basophils (%) (Auto) 0.5 % 0.7 % Neutrophils # (Auto) 3.0 X10'3 3.0 X10'3 Lymphocytes # (Auto) 1.4 X10'3 1.5 X10'3 Monocytes # (Auto) 0.4 X10'3 0.4 X10'3 Eosinophils # (Auto) 0.2 X10'3 0.2 X10'3 Basophils # (Auto) 0.0 X10'3 0.0 X10'3 CBC Comment Sodium Level 139 MMOL/L 134 MMOL/L Potassium Level 3.4 MMOL/L 4.0 MMOL/L Chloride Level 102 MMOL/L 100 MMOL/L Carbon Dioxide Level 30.6 MMOL/L 26.3 MMOL/L Anion Gap 6 8 Blood Urea Nitrogen 8 MG/DL 10 MG/DL Creatinine 0.70 MG/DL 0.90 MG/DL Estimated GFR/1.73 m2 84 ML/MIN 63 ML/MIN BUN/Creatinine Ratio 11.4 11.1 Glucose Level 88 MG/DL 102 MG/DL Calcium Level 8.6 MG/DL 8.4 MG/DL Magnesium Level 1.5 MG/DL 1.7 MG/DL Albumin 3.4 G/DL 3.6 G/DL Chemistry Comments Advise on discharge: - extensive cardiac workup is negative here in the hospital, continue medications as prescribed - continue blood pressure monitor - your CT angiography of the chest was negative for any dissection or aneurysm - call 911/go to the nearby ED if any emergencies - follow up with PCP and Cardiology Dr. Quezada outpatient *Problems/Diagnosis: (1) Angina at rest Total Time Spent on D/C: > 30 Minutes Date of Service: Jan 07, 2025 Billing Provider: RICARDO HASSAN MD Common Visit Codes: 14800-HIC/OBS DISCH DAY >30min YOSEF DUMONT, RES Jan 07, 2025 20:26 RICARDO HASSAN MD Jan 07, 2025 21:30
[2025-01-07] MEDS ORDERED: TRAM50TA2 PO (21:27)
== END 2025-01-07 17:49 | disposition home or self-care (01) | DRG 311 ==
LOC: ER 11:05 → ED HOLD 13:57 → PCU 3S 17:45
PROVIDERS: ADMIT Internal Medicine; ATTEND Internal Medicine
PROC: B32T1ZZ Computerized Tomography (CT Scan) of Left Pulmonary Artery using Low Osmolar Contrast (ICD-10-PCS; principal; 2025-01-07)
PROC: B3201ZZ Computerized Tomography (CT Scan) of Thoracic Aorta using Low Osmolar Contrast (ICD-10-PCS; 2025-01-07)
PROC: B32S1ZZ Computerized Tomography (CT Scan) of Right Pulmonary Artery using Low Osmolar Contrast (ICD-10-PCS; 2025-01-07)
PROC: 4A02XM4 Measurement of Cardiac Total Activity, External Approach (ICD-10-PCS; 2025-01-07)
PROC: 3E033HZ Introduction of Radioactive Substance into Peripheral Vein, Percutaneous Approach (ICD-10-PCS; 2025-01-07)
DX: I24.9 Acute ischemic heart disease, unspecified (principal); I16.0 Hypertensive urgency; E03.9 Hypothyroidism, unspecified; F10.20 Alcohol dependence, uncomplicated; I10 Essential (primary) hypertension; Z88.2 Allergy status to sulfonamides; Z79.899 Other long term (current) drug therapy; Z87.11 Personal history of peptic ulcer disease; Z90.710 Acquired absence of both cervix and uterus
CPT/HCPCS: 36415; 71045; 71275; 74174; 78452; 80048; 80061; 80076; 83036; 83605; 83690; 83735; 83880; 84100; 84145; 84443; 84484; 85025; 85379; 85610; 85651; 85730; 86140; 87081; 93005; 93017; 93306; 93970; 96374; 96375; 99285; A9500; G0378; J1200; J1650; J1938; J2270; J2405; J2470; J2785; Q9967